=== PATIENT | male | born 1980 | race Caucasian/White ===

== ENCOUNTER 2020-05-01 16:10 | Outpatient (CLI) | payer BC | END 2020-05-01 16:11 | disposition home or self-care (01) | LOC: COV 16:10 | PROVIDERS: ATTEND Family Medicine | DX: Z20.828 Contact with and (suspected) exposure to other viral communicable diseases (principal) ==

== ENCOUNTER 2024-03-07 07:40 | Emergency (ER) | payer BC ==
--- NOTE | 2024-03-07 08:19 | ED Physician Documentation ---
History of Present Illness - Stated complaint Stated Complaint: LT ANKLE PX - History obtained from History obtained from: Patient - Additonal information Additional information: The patient comes to the emergency department chief complaint of left ankle pain, atraumatic. The patient states that he began to notice a vague pain 2 days ago after lifting a 2 but into his car. He states he rotated a little while putting the tube in the car but really did not twist his ankle or have any distinct trauma. He states that he felt more or less fine after it happened, but while riding in the car, did begin to notice that he was having some mild pain over the dorsum of the ankle and foot. He states that he decided to just "walk it off" but that when he woke up yesterday, it was quite painful and he had to use a cane to lessen the pressure on his ankle with weightbearing. He states that last night, it just hurt at rest and that he was awake since 1:00 in the morning because of the pain. He denies any prior history of the ankle. No history of gout. He has not felt any popping or clicking. No swelling. No numbness or tingling. He does note that he has been working on a project for some days and has been sitting for about 7 hours a day. He states that he has been sitting with his left foot and ankle tucked up under his other leg and wonders if that has put some strain. He also states it hurts more when his ankle is at rest when he is laying on his back and his foot naturally plantar flexes. No other complaints at this time. PD PAST MEDICAL HISTORY - Present Medications Home Medications: Ambulatory Orders Medication Instructions Recorded Confirmed Home Medications Unobtainable 03/07/24 03/07/24 [HOME MEDICATIONS UNOBTAINABLE] - Allergies Allergies/Adverse Reactions: Allergies Allergy/AdvReac Type Severity Reaction Status Date / Time No Known Drug Allergies Allergy Verified 03/07/24 08:19 PD ED PE NORMAL - Vitals Vital signs reviewed: Yes - General General: Alert and oriented X 3, No acute distress, Well developed/nourished, Other (Moderate obesity ) - HEENT HEENT: Atraumatic, EOMI, Moist mucous membranes - Neck Neck: Supple, no meningeal sign - Cardiac Cardiac: Strong equal pulses - Respiratory Respiratory: No respiratory distress - Derm Derm: Normal color, Warm and dry, No rash - Extremities Extremities: No deformity, No edema, No calf tenderness / cord, Other (Point tenderness over the tibialis anterior and extensor houses longus tendon tracts as they come through the left ankle area. Movement that engages those muscles/t endons exacerbates pain on exam, despite normal range of motion. Other tenderness or abnormality. ) - Neuro Neuro: Alert and oriented X 3 - Psych Psych: Normal mood, Normal affect Results - Vitals Vitals: Vital Signs - 24 hr 03/07/24 08:07 Temperature 36.5 C Heart Rate 89 Respiratory 20 Rate Blood Pressure 165/101 H O2 Saturation 97 Oxygen O2 Source Room air - Rads (name of study) Left ankle x-ray series Relevant Findings:: Final report received, See rad report (Negative) PD Medical Decision Making - ED course Complexity details: reviewed results, re-evaluated patient, considered differential, d/w patient, d/w family ED course: I discussed with the patient and his that the x-ray series looks good. I am not exactly Sure what precipitated the patient's pain but he does seem to have a tendinitis, most likely along his tibialis anterior sheath, but possibly involving the flexor hallucis longus. At this point in time, the mainstay of treatment will be anti-inflammatories, ice, and rest/minimizing weightbearing until the ankle is feeling better. I do not think that an air cast is going to be helpful. We discussed podiatry follow-up with this becomes a more chronic issue, though the patient has never had a problem with this before and in the absence of distinct injury, it may just go away on its own. We have also discussed not having the foot and ankle under his other leg if he is sitting down and this might help as well. Departure - Departure Disposition: 01 Home, Self Care Clinical Impression: Tendinitis Condition: Stable Instructions: Tendonitis and Tenosynovitis Follow-Up: Bubba Johnson DPM [Physician No Access] - Bertha Davies DPM [Provider Admit Priv/Credential] - Comments: The location of your pain is most consistent with an inflammation of either the tendon that pulls your big toe up or the tendon that helps twist your ankle up and inward, or the sheaths of either of those tendons. Often, the sorts of injuries/flareups occur as part of either repetitive movement or Positioning. Generally, removing the stress to the area will allow the inflammation to down and the pain will resolve. For now, you should use ice and ibuprofen as we have discussed. Keeping weight off the ankle is much as possible would also be helpful. If you wish, you can follow-up with podiatry for further evaluation if you experience ongoing issues with this pain, beyond the next couple of weeks.
--- NOTE | 2024-03-07 08:23 | XRAY Report ---
PROCEDURE: Ankle 3+V LT INDICATIONS: pain/injury TECHNIQUE: 3 views of the ankle were acquired. COMPARISON: None. FINDINGS: Bones: No fractures or dislocations. Ankle mortise is normally aligned. No suspicious bony lesions . Soft tissues: No tibiotalar joint effusion. Achilles tendon appears normal. IMPRESSION: No acute bony abnormality. Reviewed by: Bay Cronin MD on 03/07/2024 8:21 AM PDT Approved by: Bay Cronin MD on 03/07/2024 8:21 AM PDT Station ID: [id number]
[2024-03-07 08:25] VITALS: BP 165/101; O2SAT 97
== END 2024-03-07 09:08 | disposition home or self-care (01) ==
LOC: ED 07:40
DX: M77.52 Other enthesopathy of left foot and ankle (principal)
CPT/HCPCS: 99283